=== PATIENT | female | born 1985 | race Caucasian/White ===

== ENCOUNTER → 2023-03-27 | Outpatient (CLI) | payer OTHER ==
[2023-03-27 19:00] LABS: Source, Urine Clean Catch
[2023-03-27 19:11] LABS: Appearance, Urine Hazy (Clear); Bilirubin, Urine Neg (Neg); Blood, Urine Neg (Neg); Color, Urine Yellow (P-Yellow); Glucose Qualitative, Urine Neg (Neg); Ketones, Urine Neg (Neg); Leukocyte Esterase, Urine Neg (Neg); Nitrite, Urine Neg (Neg); Protein, Urine Neg (Neg); Specific Gravity, Urine 1.015 (1.003-1.022); Urobilinogen, Urine NORM (Normal)
[2023-03-27 19:19] LABS: Amorphous Mod (0-Heavy); Bacteria Few /hpf; Red Blood Cells, Urine 0-2 /hpf (0-2); Squamous Epithelial Cells Rare /hpf (Few); White Blood Cells, Urine 0-2 /hpf (0-5)
== END | disposition home or self-care (01) ==
LOC: LAB 18:58 → LAB SHORT 18:58
PROVIDERS: Obstetrics & Gynecology
DX: Z01.812 Encounter for preprocedural laboratory examination (principal); Z78.9 Other specified health status
CPT/HCPCS: 81001

== ENCOUNTER 2023-04-09 08:48 | Day surgery (SDC) | payer OTHER ==
[~2023-04-09] VITALS: Ht 152.4 cm; Wt 47.2 kg
[2023-04-09] VITALS (11 sets, daily range): BP systolic 105–131; BP diastolic 70–93
[~2023-04-09 08:48] MED LIST: CLON.5 PO; Vyvanse30 MG PO
--- NOTE | 2023-04-09 14:40 | NUR ---
ARRIVAL TO SURGICAL UNIT PLEASANT, ALERT, & COOPERATIVE. ARRIVES IN GOURNEY & IS 1 ASSIST TO BATHROOM TO VOID. SMALL AMNT BLOOD ON WILLIAM PAD. CHANGED. URINE CLEAR. ASSISTED BACK TO BED. ABD SOFT w/ LAP SITE x 5 COVERED w/ HEART SHAPED GAUZE & TEGADERM. DENIES N/V. SNACKS & FLUIDS GIVEN. WILL GIVE PO PAIN MEDS AFTER HAS SOME PO INTAKE.
--- NOTE | 2023-04-09 15:55 | NUR ---
DISCHARGE VOIDING, AMBULATING, & PAIN WELL CONTROLLED. EATING & DRINKING. INC's WNL. FEELS COMFORTABLE w/ DC. ESCORTED OUT VIA WC.
== END 2023-04-09 15:57 | disposition home or self-care (01) ==
LOC: ORSCMMR 08:48 → ORD 09:45 → SURS 14:26 → ORSCMMR 15:57
PROVIDERS: Obstetrics & Gynecology
PROC: 3E1P88Z Irrigation of Female Reproductive using Irrigating Substance, Via Natural or Artificial Opening Endoscopic (ICD-10-PCS; principal; 2023-04-09 09:45)
PROC: 0UT64ZZ Resection of Left Fallopian Tube, Percutaneous Endoscopic Approach (ICD-10-PCS; principal; 2023-04-09 09:45)
PROC: 0U5F4ZZ Destruction of Cul-de-sac, Percutaneous Endoscopic Approach (ICD-10-PCS; principal; 2023-04-09 09:45)
DX: N80.30 Endometriosis of pelvic peritoneum, unspecified (principal); N83.291 Other ovarian cyst, right side; N73.6 Female pelvic peritoneal adhesions (postinfective); N97.1 Female infertility of tubal origin; Z79.899 Other long term (current) drug therapy
CPT/HCPCS: 88305; A9270; J1100; J1170; J1885; J2250; J2405; J2704; J3010; J7120; Q9968